=== PATIENT | female | born 1995 | race Hispanic/Latino ===

== ENCOUNTER 2017-08-10 07:43 | Emergency (ER) | payer SELFPAY ==
--- NOTE | 2017-08-10 10:11 | RAD ---
CHEST ONE VIEW: 08/10/2017 at 10:04 a.m. HISTORY: Cough. FINDINGS/IMPRESSION: Comparison is made with the exam of 01/18/2014. The heart size is normal. The lungs are expanded without focal areas of consolidation, pneumothorax , or pleural effusions. IMPRESSION: No radiographic evidence of acute cardiopulmonary process. POS: [facility]
== END 2017-08-10 11:01 | disposition home or self-care (01) ==
LOC: ERS 07:43
DX: J10.1 Influenza due to other identified influenza virus with other respiratory manifestations (principal); J45.909 Unspecified asthma, uncomplicated; D64.9 Anemia, unspecified; F17.210 Nicotine dependence, cigarettes, uncomplicated; F31.9 Bipolar disorder, unspecified
CPT/HCPCS: 71010; 87081; 87430

== ENCOUNTER 2019-01-14 18:06 | Emergency (ER) | payer SELFPAY ==
[2019-01-14] MEDS ORDERED: Meclizine HCl 25 MG TAB ONE (18:23)
[2019-01-14] MEDS ORDERED: Ondansetron ODT 4 MG TAB ONE (18:23)
[2019-01-14 18:55] LABS: #Basophils 0.1 thou/uL (0.0-0.2); #Eosinphils 0.4 thou/uL (0.0-0.7); #Lymphocytes 3.7 thou/uL (1.20-3.40); #Monocytes 0.6 thou/uL (0.11-0.59); #Neutrophils 4.3 thou/uL (1.40-6.50); %Basophils 0.9 % (0.0-1.0); %Eosinophils 4.6 % (0.0-10.0); %Lymphocytes 40.9 % (21.0-51.0); %Monocytes 6.2 % (0.0-10.0); %Neutrophils 47.5 % (42.0-75.0); Hemoglobin 14.9 g/dL (12.0-16.0); Mean Corpuscular HGB CONC 34.1 g/dL (32.0-36.0); Mean Corpuscular Hemoglobin 27.8 pg (27.0-31.0); Mean Corpuscular Volume 81.4 fL (78.0-98.0); Mean Platelet Volume 9.1 fL (7.4-10.4); Platelet Count 251 thou/uL (130-400); RBC Distribution Width 12.6 % (11.5-14.5); Red Blood Cell (RBC) Count 5.37 mill/uL (4.20-5.40); White Blood Cell (WBC) Count 9.1 thou/uL (4.8-10.8)
[2019-01-14 19:19] LABS: ALT (SGPT) 23 U/L (8-55); AST (SGOT) 20 U/L (5-34); Albumin 3.8 g/dL (3.5-5.0); Alkaline Phosphatase 69 U/L (40-150); Anion Gap 14 mmol/L (10-20); BUN (Urea Nitrogen) Less than 4 mg/dL (7.0-18.7); Bilirubin, Total 0.5 mg/dL (0.2-1.2); Calc. Creatinine Clearance 0 mL/min (70-130); Carbon Dioxide 20 mmol/L (22-29); Chloride 110 mmol/L (98-107); Estimated GFR-MDRD Greater than 90; Globulin 2.8 g/dL (2.4-3.5); Glucose 107 mg/dL (70-105); Potassium 3.7 mmol/L (3.5-5.1); Protein, Total 6.6 g/dL (6.0-8.3); Sodium 140 mmol/L (136-145)
[2019-01-14 19:25] LABS: BHCG - Serum Negative (NEGATIVE); Pregs Control Background? CLEAR/WHITE (CLR/WHITE); Pregs Control Bar Appear? YES (CONTROL BAR)
== END 2019-01-14 19:51 | disposition home or self-care (01) ==
LOC: ERS 18:06
DX: R11.2 Nausea with vomiting, unspecified (principal); R42 Dizziness and giddiness; F31.9 Bipolar disorder, unspecified; D64.9 Anemia, unspecified; J45.909 Unspecified asthma, uncomplicated; G43.909 Migraine, unspecified, not intractable, without status migrainosus; F17.210 Nicotine dependence, cigarettes, uncomplicated; Z87.442 Personal history of urinary calculi; Z79.899 Other long term (current) drug therapy
CPT/HCPCS: 80053; 84703; 85025; 93005; 96360; J2175; J8499; Q0162

== ENCOUNTER 2019-04-01 23:43 | Emergency (ER) | payer SELFPAY ==
[2019-04-02 00:34] LABS: Hemoglobin 15.5 g/dL (12.0-16.0); Mean Corpuscular HGB CONC 33.8 g/dL (32.0-36.0); Mean Corpuscular Hemoglobin 27.7 pg (27.0-31.0); Mean Platelet Volume 8.5 fL (7.4-10.4); Platelet Count 245 thou/uL (130-400); RBC Distribution Width 12.4 % (11.5-14.5); Red Blood Cell (RBC) Count 5.59 mill/uL (4.20-5.40)
[2019-04-02 00:56] LABS: Band 1 % (5-11); Eosinophils 2 % (0-10); Lymphocytes 60 % (21-51); MDiff Complete? YES; Monocytes 4 % (0-10); Neutrophil 31 % (42-75); Reactive Lymphocytes 1 % (0-10)
[2019-04-02 00:57] LABS: ALT (SGPT) 16 U/L (8-55); AST (SGOT) 17 U/L (5-34); Albumin 4.1 g/dL (3.5-5.0); Alkaline Phosphatase 69 U/L (40-150); Anion Gap 16 mmol/L (10-20); BUN (Urea Nitrogen) 7 mg/dL (7.0-18.7); Bilirubin, Total 0.5 mg/dL (0.2-1.2); Calc. Creatinine Clearance 0 mL/min (70-130); Calcium 9.3 mg/dL (7.8-10.44); Carbon Dioxide 19 mmol/L (22-29); Chloride 104 mmol/L (98-107); Estimated GFR-MDRD Greater than 90; Glucose 89 mg/dL (70-105); Lipase 10 U/L (8-78); Potassium 3.6 mmol/L (3.5-5.1); Protein, Total 7.1 g/dL (6.0-8.3); Sodium 135 mmol/L (136-145)
[2019-04-02] MEDS ORDERED: Ondansetron PF 4 MG/2 ML Vial ONE (02:04)
[2019-04-02] MEDS ORDERED: Morphine 4 MG/ML VIAL ONE (02:04)
[2019-04-02 02:31] LABS: Bilirubin Negative (Negative); Blood, Urine Negative (Negative); Clarity Clear (Clear); Glucose, Urine (Dipstick) Normal (Negative); Leukocyte Negative Leu/uL (Negative); Nitrite Negative (Negative); Protein, Urine (Dipstick) Negative (Neg-Trace); Urobilinogen Normal mg/dL (Less than 2)
[2019-04-02 02:39] LABS: Pregnancy Test - Urine (BHCG) Negative (Negative); Pregu Control Background? CLEAR/WHITE (CLR/WHITE); Pregu Control Bar Appear? YES (CONTROL BAR)
[2019-04-02 02:40] LABS: Specific Gravity 1.006 (1.002-1.036)
== END 2019-04-02 03:44 | disposition home or self-care (01) ==
LOC: ERS 23:43
DX: R11.2 Nausea with vomiting, unspecified (principal); R19.7 Diarrhea, unspecified; D64.9 Anemia, unspecified; G43.909 Migraine, unspecified, not intractable, without status migrainosus; J45.909 Unspecified asthma, uncomplicated; F31.9 Bipolar disorder, unspecified; F17.210 Nicotine dependence, cigarettes, uncomplicated; Z79.899 Other long term (current) drug therapy
CPT/HCPCS: 36415; 80053; 81003; 81025; 83690; 85025; 96361; 96374; 96375; J2270; J2405

== ENCOUNTER 2019-06-02 21:22 | Emergency (ER) | payer SELFPAY ==
[2019-06-02] MEDS ORDERED: Lorazepam 2 MG/ML VIAL ONE (21:48)
--- NOTE | 2019-06-03 07:13 | RAD ---
3 VIEWS LEFT HAND: Date: 06/02/19 HISTORY: Hand pain. COMPARISON: None. FINDINGS: There is no evidence of a fracture, dislocation, or other osseous abnormality involving the left hand . IMPRESSION: No acute osseous abnormality. POS: OFF
--- NOTE | 2019-06-03 07:14 | RAD ---
PORTABLE AP CHEST: Date: 06/02/19 HISTORY: Chest pain. COMPARISON: 08/10/17. FINDINGS: Cardiac silhouette and pulmonary vasculature are within normal limits. The lungs remain clear. There has been no interval change when compared to the prior exam. IMPRESSION: No acute cardiopulmonary process. POS: OFF
== END 2019-06-02 22:46 | disposition home or self-care (01) ==
LOC: ERS 21:22
DX: F41.9 Anxiety disorder, unspecified (principal); G43.909 Migraine, unspecified, not intractable, without status migrainosus; F17.210 Nicotine dependence, cigarettes, uncomplicated; Z79.899 Other long term (current) drug therapy
CPT/HCPCS: 71045; 93005; 96374; J2060

== ENCOUNTER 2019-06-11 15:18 | Outpatient (CLI) | payer OTHER ==
--- NOTE | 2019-06-11 16:04 | ULT ---
RENAL SONOGRAM: 06/11/19 HISTORY: Hypertension. FINDINGS: Right kidney is 10.5 cm length and left is 10.7 cm. Each has a normal appearance without evidence of mass, stone or hydronephrosis. Urinary bladder is unremarkable. IMPRESSION: Normal renal sonogram. POS: [facility]
== END 2019-06-11 15:19 | disposition home or self-care (01) ==
LOC: BICULT 15:18
PROVIDERS: ATTEND Nurse Practitioner Family
DX: I10 Essential (primary) hypertension (principal); R53.83 Other fatigue
CPT/HCPCS: 76770

== ENCOUNTER 2019-07-12 20:45 | Emergency (ER) | payer SELFPAY ==
[2019-07-12] MEDS ORDERED: Metoclopramide HCl 10 MG/2 ML VIAL ONE (21:32)
[2019-07-12] MEDS ORDERED: Acetaminophen 500 MG TAB ONE (21:32)
[2019-07-12] MEDS ORDERED: diphenhydrAMINE 50 MG/ML VIAL ONE (21:32)
--- NOTE | 2019-07-12 22:49 | CT ---
CT BRAIN NONCONTRAST: DATE: 07/12/2019 HISTORY: 23-year-old female with headache FINDINGS: There is no evidence of acute intra-axial or extra-axial hemorrhage. There is no midline shift or any other mass effect. There is no extra-axial fluid collection. There is no evidence of obstructive hydrocephalus. Calvarium is intact. IMPRESSION: No acute intracranial findings.
== END 2019-07-12 22:58 | disposition home or self-care (01) ==
LOC: ERS 20:45
DX: R51 Headache (principal); J45.909 Unspecified asthma, uncomplicated; D64.9 Anemia, unspecified; F41.9 Anxiety disorder, unspecified; F31.9 Bipolar disorder, unspecified; F43.10 Post-traumatic stress disorder, unspecified; F17.210 Nicotine dependence, cigarettes, uncomplicated
CPT/HCPCS: 70450; 96365; 96375; J1200; J2765

== ENCOUNTER 2019-08-13 13:13 | Outpatient (CLI) | payer OTHER ==
--- NOTE | 2019-08-13 13:27 | RAD ---
XR Chest Pa Lat STANDARD HISTORY: Wheezing COMPARISON: 06/02/2019 FINDINGS: The heart size is normal. The lungs are well expanded without focal areas of consolidation, pneumothorax or pleural effusions. IMPRESSION: No radiographic evidence of acute cardiopulmonary process.
== END 2019-08-13 13:14 | disposition home or self-care (01) ==
LOC: RAD-FRANK 13:13
PROVIDERS: ATTEND Internal Medicine
DX: R06.2 Wheezing (principal)
CPT/HCPCS: 71046

== ENCOUNTER 2019-08-18 12:15 | Emergency (ER) | payer SELFPAY ==
[2019-08-18] MEDS ORDERED: Metoclopramide HCl 10 MG/2 ML VIAL ONE (14:03)
[2019-08-18] MEDS ORDERED: diphenhydrAMINE 50 MG/ML VIAL ONE (14:03)
[2019-08-18 14:10] LABS: Pregnancy Test - Urine (BHCG) Negative (Negative); Pregu Control Background? CLEAR/WHITE (CLR/WHITE); Pregu Control Bar Appear? YES (CONTROL BAR); Specific Gravity 1.014 (1.002-1.036)
--- NOTE | 2019-08-18 14:19 | RAD ---
EXAM: Portable chest PROVIDED CLINICAL HISTORY: Cough COMPARISON: 06/02/2019 FINDINGS: Cardiac and mediastinal silhouette is within normal limits. No focal consolidation, pleural fluid or pneumothorax evident. IMPRESSION: No evidence for an acute cardiopulmonary process.
== END 2019-08-18 16:30 | disposition home or self-care (01) ==
LOC: ERS 12:15
DX: J18.9 Pneumonia, unspecified organism (principal); R51 Headache; J45.909 Unspecified asthma, uncomplicated; D64.9 Anemia, unspecified; F31.9 Bipolar disorder, unspecified; F43.10 Post-traumatic stress disorder, unspecified; F41.9 Anxiety disorder, unspecified; F17.210 Nicotine dependence, cigarettes, uncomplicated
CPT/HCPCS: 71045; 81025; 94640; 96365; 96375; J1200; J2765

== ENCOUNTER 2019-11-16 00:32 | Emergency (ER) | payer SELFPAY ==
--- NOTE | 2019-11-16 07:53 | RAD ---
Exam: XR Hand Lt 3 View STANDARD HISTORY: Left hand pain after punching a wall and car window. COMPARISON: 06/02/2019 FINDINGS: No radiopaque foreign body is seen. No acute fracture, dislocation, or other acute osseous abnormality is identified. No interval change from prior study. IMPRESSION: No acute osseous abnormality is identified.
== END 2019-11-16 01:00 | disposition home or self-care (01) ==
LOC: ERS 00:32
DX: S60.222A Contusion of left hand, initial encounter (principal); D64.9 Anemia, unspecified; J45.909 Unspecified asthma, uncomplicated; F31.9 Bipolar disorder, unspecified; F43.10 Post-traumatic stress disorder, unspecified; F41.9 Anxiety disorder, unspecified; F17.210 Nicotine dependence, cigarettes, uncomplicated; W22.01XA Walked into wall, initial encounter

== ENCOUNTER 2020-03-31 09:37 | Observation (INO) | payer OTHER, SELFPAY ==
[~2020-03-31 09:37] MED LIST: Iopamidol 370 76% 100 ML VIAL ONE
[2020-03-31 10:12] LABS: #Basophils 0.1 thou/uL (0.0-0.2); #Eosinphils 0.8 thou/uL (0.0-0.7); #Lymphocytes 3.7 thou/uL (1.20-3.40); #Monocytes 0.6 thou/uL (0.11-0.59); %Basophils 1.3 % (0.0-1.0); %Eosinophils 6.7 % (0.0-10.0); %Lymphocytes 32.9 % (21.0-51.0); %Monocytes 5.4 % (0.0-10.0); %Neutrophils 53.6 % (42.0-75.0); Hemoglobin 16.9 g/dL (12.0-16.0); Mean Corpuscular HGB CONC 33.2 g/dL (32.0-36.0); Mean Corpuscular Hemoglobin 27.8 pg (27.0-31.0); Mean Corpuscular Volume 83.8 fL (78.0-98.0); Mean Platelet Volume 8.6 fL (7.4-10.4); Platelet Count 290 thou/uL (130-400); Red Blood Cell (RBC) Count 6.07 mill/uL (4.20-5.40); White Blood Cell (WBC) Count 11.2 thou/uL (4.8-10.8)
[2020-03-31] MEDS ORDERED: diphenhydrAMINE 50 MG/ML VIAL ONE (10:15)
[2020-03-31] MEDS ORDERED: Metoclopramide HCl 10 MG/2 ML VIAL ONE (10:15)
[2020-03-31] MEDS ORDERED: Dexamethasone 10 MG/ML VIAL ONE (10:15)
--- NOTE | 2020-03-31 10:24 | RAD ---
CHEST 1 VIEW PORTABLE: Date: 03/31/2020 HISTORY: Headache, nausea, lightheadedness. COMPARISON: 08/18/2019. FINDINGS: Heart size is normal. The lungs are clear. No confluent pneumonia, overt edema, or pleural effusion. IMPRESSION: No acute intrathoracic disease. Stable from 08/18/2019. POS: OFF
--- NOTE | 2020-03-31 10:25 | CT ---
CT BRAIN NONCONTRAST: DATE: 03/31/2020 HISTORY: 24-year-old female with acute stroke symptoms: Sudden onset dysarthria, left body numbness, and ataxi a. Dr. Mary verbally gave this level 1 stroke alert protocol report to Dr. Caldwell at 10:21 AM 03/31/2020. FINDINGS: There is no evidence of acute intra-axial or extra-axial hemorrhage. There is no midline shift or any other mass effect. There is no extra-axial fluid collection. There is no evidence of obstructive hydrocephalus. Calvarium is intact. IMPRESSION: No acute intracranial findings.
[2020-03-31 10:37] LABS: ALT (SGPT) 28 U/L (8-55); AST (SGOT) 20 U/L (5-34); Albumin 4.6 g/dL (3.5-5.0); Alkaline Phosphatase 86 U/L (40-110); Anion Gap 16 mmol/L (10-20); BUN (Urea Nitrogen) 7 mg/dL (7.0-18.7); Bilirubin, Total 0.4 mg/dL (0.2-1.2); Calc. Creatinine Clearance 0 mL/min (70-130); Calcium 9.7 mg/dL (7.8-10.44); Carbon Dioxide 21 mmol/L (22-29); Chloride 103 mmol/L (98-107); Estimated GFR-MDRD Greater than 90; Globulin 3.1 g/dL (2.4-3.5); Glucose 122 mg/dL (70-105); Potassium 4.1 mmol/L (3.5-5.1); Protein, Total 7.7 g/dL (6.0-8.3); Sodium 136 mmol/L (136-145)
--- NOTE | 2020-03-31 10:46 | CT ---
CT ANGIOGRAM NECK WITH CONTRAST: DATE: 03/31/2020 HISTORY: 24-year-old female with acute stroke symptoms: Sudden onset left sided weakness, ataxia, dysarthria, dizziness, and altered mental status. This stroke alert protocol report was verbally given by Dr. Mary to Dr. Caldwell of the ER at 10:42 AM 03/31/2020 TECHNIQUE: After IV contrast injection, arterial bolus chasing technique scan performed from vikash to vertex of head. Coronal and sagittal 3-D MIP reconstructions. FINDINGS: Carotid siphons, M1 segments of bilateral MCAs, A1 and A2 segments of bilateral ACAs, left P-comm, P1 and P2 segments of bilateral active directory systems administrator, basilar, bilateral PICA s, bilateral AICAs, bilateral superior cerebellars, cervical and intracranial bilateral vertebral sac, cervical bilateral internal carotids, bilateral common carotids, proximal right subclavian, left subclavian, and brachiocephalic, arteries, appear normal, with no evidence of short segment focal acquired stenosis, dissection, aneur ysm, occlusion, or calcified atheromatous plaque. IMPRESSION: Negative
[2020-03-31 10:51] LABS: INR-International Normal Ratio 0.9; PTT 34.9 sec (22.9-36.1); Prothrombin Time 11.9 sec (12.0-14.7)
[2020-03-31] MEDS ORDERED: Lorazepam 2 MG/ML VIAL ONE (11:10)
[2020-03-31] MEDS ORDERED: Ketorolac Tromethamine 30 MG/ML VIAL ONE (13:09)
[2020-03-31] MEDS ORDERED: Ondansetron PF 4 MG/2 ML Vial IVP PRN (13:22)
[2020-03-31] MEDS ORDERED: Senokot S 8.6-50 MG TAB PO PRN (13:22)
[2020-03-31] MEDS ORDERED: Acetaminophen 325 MG TAB PO PRN (13:22)
[2020-03-31] MEDS ORDERED: Fioricet 325/50/40 mg Tablet PO PRN (13:26)
[2020-03-31] MEDS ORDERED: Fioricet 325/50/40 mg Tablet PO SCH (13:30)
[2020-03-31 13:38] LABS: Troponin I 0.961 ng/mL (< 0.028)
[2020-03-31] MEDS ORDERED: Iopamidol-370 76% 500 ML 1 ML ONE ×2 (13:38→13:45)
[2020-03-31] MEDS ORDERED: Nicotine 14 MG PATCH TD SCH (14:00)
[2020-03-31] MEDS ORDERED: hydrALAZINE 20 MG/ML VIAL SLOW IVP PRN (14:22)
--- NOTE | 2020-03-31 14:32 | HP ---
PRIMARY CARE PHYSICIAN: [facility]. CHIEF COMPLAINT: Nausea, vomiting, headache, left-side paresthesia, chest discomfort. HISTORY OF PRESENT ILLNESS: This is a pleasant 24-year-old female with significant past medical histories of complex migraine headaches, depression/ anxiety disorder, bipolar disorder, childhood asthma, who presented to the ED with complaining of stated above. The patient apparently was at the preop area, she brought her family members in for some procedure, while waiting in the area, she developed sudden onset of frontal headache associated with left-sided numbness and paresthesia, nausea, vomiting, states that "she was about to pass out." She denies any visual disturbance. No fevers or chills. The patient reports that she did not eat anything when she came into the hospital today. Her symptoms also associated with chest discomfort. She denies any short of breath. No fever. No chills. No recent travel history. No history of COVID exposure. The patient reports that she stopped all her psychiatric medications about a year ago. Her last migraine attack was about a year ago as well. In the ED, initial workup including brain CT which was negative for acute intracranial abnormality. CTA of the head and neck was negative for large vessel disease. Chest x-ray did not show any acute process. Labs otherwise unremarkable. However her EKG initially was normal, however, she developed some chest discomfort. For that reason, the repeat EKG, which showed that she has V1 through V3, with ST depression, which is new changes from her initial EKG. Given her symptomatology, hospitalist was asked to admit the patient for further management and workup. At the time of my exam, the patient reports that her headache is much improved. ALLERGIES: NO KNOWN DRUG ALLERGIES. PAST MEDICAL HISTORY: 1. Bipolar disorder. 2. Depression/anxiety. 3. Childhood asthma. 4. Migraine disorder. PAST SURGICAL HISTORY: Left knee surgery. FAMILY HISTORY: Significant for father with history of Father with hx of heart disease. LABORATORY DATA: CBC; WBC 11.2, hemoglobin 16.9, hematocrit 50.8, platelet 290. Coagulation; PT 11.9, INR 0.9. Chemistry; sodium is 136, potassium 4.1, chloride is 103, carbon dioxide 21, anion gap 16, BUN 7, creatinine 0.69. AST, ALT within normal limits. Troponin is less than 0.01. IMAGING: Chest x-ray: No acute cardiopulmonary process. Brain CT: No acute intracranial abnormalities. CTA of head and neck: Negative for large vessel disease. EKG: As mentioned above. REVIEW OF SYSTEMS: Complete review of systems has been assessed and discussed with the patient. Negative and positive noted in the HPI. Otherwise, complete review of systems reviewed and negative. PHYSICAL EXAMINATION: GENERAL APPEARANCE: The patient is not in acute distress. HEENT: Normocephalic, atraumatic. YANCI. NECK: Supple. No lymphadenopathy. RESPIRATORY: Clear to auscultation bilaterally. CARDIAC: Regular rate and rhythm. S1, S2 noted. No murmur. ABDOMEN: Obese. Normal bowel sounds. No guarding or rebound. Nontender to palpation. EXTREMITIES: No cyanosis, no edema. NEUROLOGIC: Cranial nerves 2 through 12 are grossly intact. No focal weakness. PSYCHIATRIC: The patient is alert and oriented x3, normal affect. SKIN: Multiple tattoos noted. No rash. ASSESSMENT AND PLAN: This is a pleasant 24-year-old female with significant past histories of migraine headaches, bipolar disorder, anxiety/depression, who presented to the ED with multiple complaints including new onset of frontal headache associated with left upper extremity paresthesia, and nausea and vomiting. Initial workup in the ED was unremarkable except for EKG changes. 1. Migraine attack. 2. Abnormal EKG. 3. Chest discomfort. 4. Morbid obesity. 5. Histories of bipolar disorder. 6. Depression/anxiety disorder. 7. Hypertensive urgency - BP is now normalized The patient will be admitted to tele for observation. We will continue with serial enzymes, repeat EKG in a.m. We will obtain echo to assess her LV function. Also obtain treadmill stress test for further risk stratification. Check D-Dimer. Given regarding her headache, this is likely d/t complex migraine headache and/or due to elevated BP. We will continue with supportive care, p.r.n. Fioricet. CT head and neck was unremarkable. We will hold off on MRI at this point as her physical exam did not show any focal weakness or any other neurological signs or symptoms. IV fluid hydrations, supportive care. We will repeat labs in a.m. Monitor BP, consider start her on anti-hypertensive medication if elevate again; otherwise prn IV Hydralazine for now. CODE STATUS: The patient is full code per her request. DVT prophylaxis, SCD. GI prophylaxis, not indicated. Job ID: [id number] [facility]
[2020-03-31] MEDS ORDERED: Fentanyl 100 MCG/2 ML VIAL ONE (16:30)
[2020-03-31 16:42] LABS: Troponin I 2.288 ng/mL (< 0.028)
[2020-03-31 16:50] VITALS: BMI 37.8
[2020-03-31] MEDS ORDERED: Acetaminophen/Codeine 30-300mg Tablet PO PRN (16:51)
[2020-03-31] MEDS ORDERED: Sodium Chloride 0.9% 200 ML IV PRN (16:51)
[2020-03-31] MEDS ORDERED: Sodium Chloride 0.9% 500 ML IV SCH (17:00)
[2020-03-31 17:14] LABS: Amphetamine Detected (NotDetected); Benzodiazepine Screen Detected (NotDetected); Cocaine Metabolite Screen Not Detected (NotDetected); Medtox Reader # READER 1; Methamphetamine Detected (NotDetected); Opiate Screen Detected (NotDetected); Phencyclidine (PCP) Not Detected (NotDetected); THC/Cannabinoid Screen Not Detected (NotDetected)
[2020-03-31 17:15] LABS: Barbiturates Screen Not Detected (NotDetected); Medtox Control Line Valid? VALID (VALID); Methadone Not Detected (NotDetected); Oxycodone Screen Not Detected (NotDetected); Tricyclic Screen Not Detected (NotDetected)
[2020-03-31 17:55] LABS: Pregnancy Test - Urine (BHCG) Negative (Negative); Pregu Control Background? CLEAR/WHITE (CLR/WHITE); Pregu Control Bar Appear? YES (CONTROL BAR); Specific Gravity 1.027 (1.002-1.036)
--- NOTE | 2020-03-31 20:06 | CT ---
CT arteriogram chest and abdomen with IV contrast and 3-D imaging HISTORY: Chest and abdomen pain radiating to the back. FINDINGS: There is good contrast opacification of the aorta with normal branching of the great vessel s at the aortic arch. No filling defects evident within the pulmonary arteries. Visceral arteries are patent. No evidence of dissection or injury. Tiny nonspecific subpleural nodule is present within the right upper lobe. Hyperdense material within the gallbladder from recent catheterization procedure. IMPRESSION : No acute vascular abnormalities or other significant abnormalities are demonstrated.
[2020-03-31] MEDS: HYDROcodone/Acetaminophen 5/325 mg Tablet PO PRN (20:13)
[2020-04-01] MEDS: HYDROcodone/Acetaminophen 5/325 mg Tablet PO PRN ×2 (04:04→09:35)
[2020-04-01 04:45] LABS: #Basophils 0.2 thou/uL (0.0-0.2); #Monocytes 0.7 thou/uL (0.11-0.59); %Basophils 1.1 % (0.0-1.0); %Eosinophils 0.1 % (0.0-10.0); %Lymphocytes 12.1 % (21.0-51.0); %Monocytes 4.3 % (0.0-10.0); %Neutrophils 82.5 % (42.0-75.0); Hemoglobin 16.4 g/dL (12.0-16.0); Mean Corpuscular HGB CONC 33.4 g/dL (32.0-36.0); Mean Corpuscular Hemoglobin 27.8 pg (27.0-31.0); Mean Corpuscular Volume 83.3 fL (78.0-98.0); Mean Platelet Volume 8.8 fL (7.4-10.4); Platelet Count 300 thou/uL (130-400); White Blood Cell (WBC) Count 16.9 thou/uL (4.8-10.8)
[2020-04-01 05:07] LABS: Anion Gap 17 mmol/L (10-20); BUN (Urea Nitrogen) 6 mg/dL (7.0-18.7); Calc. Creatinine Clearance 205 mL/min (70-130); Calcium 9.5 mg/dL (7.8-10.44); Carbon Dioxide 18 mmol/L (22-29); Chloride 105 mmol/L (98-107); Estimated GFR-MDRD Greater than 90; Glucose 127 mg/dL (70-105); Magnesium 1.9 mg/dL (1.6-2.6); Potassium 3.9 mmol/L (3.5-5.1); Sodium 136 mmol/L (136-145)
--- NOTE | 2020-04-01 07:20 | CON ---
DATE OF CONSULTATION: 03/31/2020 REASON FOR CONSULTATION: Chest pain. HISTORY OF PRESENT ILLNESS: Ms. Jonathan Lynch is a pleasant 24-year-old female, who comes to the hospital to be with her for surgery. Her received I think a bladder lift earlier today. While she was in the waiting area waiting for her to be done with her surgery, she developed sudden onset of headache symptoms that were concerning for possible TIA versus stroke, eventually these resolved and started having a lot more chest pain. She states that she was very close to having a syncopal spell. She was sent to the ER where a CT of the brain was negative for any bleeding, a CT angio of the brain was also negative, her chest x-ray was unremarkable. During her initial evaluation, troponins were drawn and the initial one was undetectable and second one was 0.9, so Cardiology was consulted for this. On my evaluation, Ms. Castillo is having ongoing chest pain. She states that her pain is about 6/10 in the midsternal area, feels more like a pressure. It is better than what it was when she originally came in. Chest x-ray was unremarkable. No widened mediastinum. PAST MEDICAL HISTORY: 1. Bipolar disorder. 2. Anxiety and depression. 3. Childhood asthma. 4. Migraine disorder. PAST SURGICAL HISTORY: Left knee surgery. FAMILY HISTORY: Father with early coronary artery disease, otherwise unremarkable. OUTPATIENT MEDICATIONS: None currently. ALLERGIES: NO KNOWN DRUG ALLERGIES. REVIEW OF SYSTEMS: A 12-point review of systems was done and was found to be negative other than stated in the history of present illness. PHYSICAL EXAMINATION: VITAL SIGNS: Temperature 97.2; pulse 88; respiratory rate 16; saturating 98% on room air; blood pressure on arrival of 215/126, however, the most recent one was 127/83, and she continues to have chest pain. GENERAL: Awake, alert, and oriented x3, in no distress. HEENT: Normocephalic and atraumatic. NECK: Supple. LUNGS: Clear. CARDIOVASCULAR: S1 and S2. No S3 or S4. No murmurs. No rubs. ABDOMEN: Soft. Positive bowel sounds. EXTREMITIES: No edema. SKIN: Warm and dry. LABORATORY DATA: Laboratory work was reviewed. CBC was unremarkable except for hemoglobin of 16 and white count of 11. Coags were normal. D-dimer was undetectable. Chemistries were unremarkable except for a glucose of 117. Troponin initially was less than assay limit, second one was 0.96. IMAGING STUDIES: EKG was reviewed. Chest x-ray was reviewed. CT of the brain and CT of the [place] with contrast were reviewed. ASSESSMENT AND PLAN: 1. [id number] myocardial infarction. 2. Hypertensive emergency. PLAN: 1. Currently, my only concern would be coronary artery dissection that is ongoing and is causing her to have ongoing chest pain. Her blood pressure is completely back to normal. She continues to have chest pain and her troponin is mildly elevated. We could explain her mildly elevated troponin with hypertension; however, her symptoms remain despite normalized blood pressure. At this point, I think it is prudent to be more aggressive to make sure there is no coronary artery dissection that may need to be either stented or bypassed. I have offered Ms. Castillo heart catheterization. We spoke at length about the risks and benefits of the procedure. Risks included, but not limited to stroke, [place], , bleeding, need for blood transfusion, limb loss, organ loss. The patient understands and verbalized understanding of this and agrees to proceed. We will do this in a semi-emergent fashion at this time. 2. If heart catheterization is unremarkable, we may need to do a CT of the chest with contrast to make sure there is no other issues going on causing her chest pain. Thank you for letting us participate in the care of your patient. We will follow. Job ID: [id number]
--- NOTE | 2020-04-01 10:02 | CT ---
CT ANGIOGRAM HEAD AND NECK WITH CONTRAST: DATE: 03/31/2020 HISTORY: 24-year-old female with acute stroke symptoms: Sudden onset left sided weakness, ataxia, dysarthria, dizziness, and altered mental status. This stroke alert protocol report was verbally given by Dr. Mary to Dr. Caldwell of the ER at 10:42 AM 03/31/2020 TECHNIQUE: After IV contrast injection, arterial bolus chasing technique scan performed from vikash to vertex of head. Coronal and sagittal 3-D MIP reconstructions. FINDINGS: Carotid siphons, M1 segments of bilateral MCAs, A1 and A2 segments of bilateral ACAs, left P-comm, P1 and P2 segments of bilateral strategic communications manager, basilar, bilateral PICA s, bilateral AICAs, bilateral superior cerebellars, cervical and intracranial bilateral vertebral sac, cervical bilateral internal carotids, bilateral common carotids, proximal right subclavian, left subclavian, and brachiocephalic, arteries, appear normal, with no evidence of short segment focal acquired stenosis, dissection, aneur ysm, occlusion, or calcified atheromatous plaque. IMPRESSION: Negative Transcribed Date/Time: 04/01/2020 10:02 AM
[2020-04-01 11:13] VITALS: TEMP 98.4
[2020-04-01 11:53] VITALS: BP 131/87
--- NOTE | 2020-04-01 13:17 | PDOC.CPN ---
- Subjective Date: 04/01/20 Time: 13:16 Interval history: No new issues. No more chest pain. - Review of Systems General: denies: fever/chills, weight/appetite/sleep changes, night sweats, fatigue Respiratory: denies: cough, congestion, shortness of breath, exercise intolerance Cardiovascular: denies: chest pain, palpitation, edema, paroxysmal nocturnal dyspnea, orthopnea Gastrointestinal: denies: nausea, vomiting, diarrhea, constipation, abd pain, GI bleeding Musculoskeletal: denies: pain, tenderness, stiffness, swelling, arthritis/ arthralgias Neurological: denies: numbness, syncope, seizure, weakness - Objective Allergies/Adverse Reactions: Allergies Allergy/AdvReac Type Severity Reaction Status Date / Time No Known Allergies Allergy Verified 07/14/13 16:49 Visit Medications: Current Medications Acetaminophen (Tylenol) 650 mg PO Q4H PRN PRN Reason: Headache/Fever/Mild Pain (1-3) Last Admin: 03/31/20 19:17 Dose: 650 mg Acetaminophen/Butalbital/Caffeine (Fioricet) 1 tab PO Q4H PRN PRN Reason: Headache Stop: 04/05/20 13:27 Acetaminophen/Codeine Phosphate (Tylenol #3) 1 tab PO Q4H PRN PRN Reason: Mild Pain (1-3) Hydrocodone Bitart/Acetaminophen ([place] 5/325) 1 tab PO Q4H PRN PRN Reason: Moderate Pain (4-6) Last Admin: 04/01/20 09:35 Dose: 1 tab Hydralazine HCl (Apresoline) 10 mg SLOW IVP Q4H PRN PRN Reason: SBP>160 or DBP>90 Sodium Chloride (Normal Saline 0.9%) 200 mls @ 0 mls/hr IV ONE PRN PRN Reason: SBP < 90 Stop: 04/01/20 16:52 Nicotine (Nicoderm Patch) 14 mg TD Q24HR AUDRA Last Admin: 03/31/20 15:30 Dose: 14 mg Ondansetron HCl (Zofran) 4 mg IVP Q6H PRN PRN Reason: Nausea/Vomiting Pneumococcal Polyvalent Vaccine (Pneumovax 23) 0.5 ml IM .ONCE ONE Stop: 04/01/20 17:46 Senna/Docusate Sodium (Senokot S) 2 tab PO BIDPRN PRN PRN Reason: Constipation Last Admin: 04/01/20 09:36 Dose: 2 tab Vital Signs & Weight: Vital Signs Temp Pulse Pulse Pulse Resp BP BP 04/01/20 11:12 98.4 F 115 H 16 04/01/20 10:37 125 H 128 H 131/87 97/67 04/01/20 07:47 98.2 F 99 18 04/01/20 04:46 99.3 F 105 H 23 H BP BP Pulse Ox Pulse Ox Pulse Ox 04/01/20 11:12 122/73 99 04/01/20 10:37 98 98 04/01/20 07:47 120/85 99 04/01/20 04:46 125/88 98 Weight 209 lb 7.026 oz - Physical Exam General: alert & oriented x3 HEENT: mucus membranes moist Neck: supple neck Cardiac: regular rate and rhythm Lungs: clear to auscultation Neuro: grossly intact Abdomen: active bowel sounds Extremities: no edema Skin: clear Musculoskeletal: no pain - Labs Result Diagrams: 04/01/20 04:00 04/01/20 04:00 Troponin/CKMB Troponin I 2.288 ng/mL (< 0.028) H* 03/31/20 15:53 - Telemetry Sinus rhythms and dysrhythmias: sinus tachycardia - Assessment/Plan Assessment/Plan: 1. NSTEMI 2. Methamphetamine in UDS 3. Normal coronaries. PLAN: - Likely all her symptoms related to Methamphetamine use. - May discharge home. CV stable. - Will sign off. Please call with any questions.
[2020-04-01 13:53] LABS: SARS-CoV-2 MS2 Positive; SARS-CoV-2 N Gene Negative; SARS-CoV-2 S Gene Negative; SARS-CoV-2 by NAA Not Detected (NotDetected); SARS-CoV-2 orf1ab Negative
--- NOTE | 2020-04-01 16:46 | EKG ---
Test Reason : Blood Pressure : / mmHG Vent. Rate : 086 BPM Atrial Rate : 086 BPM P-R Int : 122 ms QRS Dur : 090 ms QT Int : 414 ms P-R-T Axes : 032 044 033 degrees QTc Int : 495 ms Normal sinus rhythm Prolonged QT Abnormal ECG When compared with ECG of 31-MAR-2020 10:46, (Unconfirmed) ST no longer depressed in Anterior leads Nonspecific T wave abnormality no longer evident in Anterior leads QT has lengthened Confirmed by DR. Jennifer RVIERA ([id number]) on 04/01/2020 4:45:48 PM Referred By: ODILIA Confirmed By:DR. Jennifer RIVERA
--- NOTE | 2020-04-02 16:46 | DIS ---
DATE OF ADMISSION: 03/31/2020 DATE OF DISCHARGE: 04/01/2020 DISCHARGE DIAGNOSES: 1. Hrd-[id number] myocardial infarction. 2. Migraine headache. 3. Abnormal EKG. 4. Chest discomfort. 5. Morbid obesity. 6. History of bipolar disorders. 7. Depression/anxiety disorders. 8. Hypertensive urgency. 9. Positive drug urine screen for opiate, amphetamine, methamphetamine, and benzodiazepine. CONSULTATIONS: Cardiology, Dr. Tadeo. PROCEDURE: Left heart catheterization, normal coronary artery. IMAGING STUDY: CT angio of the head and neck was negative. Brain CT had no acute intracranial findings. CTA dissection protocol, no vasculature abnormalities or other significant abnormalities demonstrated. HISTORY OF PRESENT ILLNESS AND BRIEF HOSPITAL COURSE: The patient is a pleasant 24-year-old female, who has significant past medical history of complex migraine headache, depression/anxiety disorder, bipolar disorder, and childhood asthma, who presented to the ED with complaining of acute onset of nausea, vomiting, headache associated with left-sided paresthesia, chest discomfort. Initial workup in the ED including CTA of the head and neck was negative for any small vessel disease. CT of the head was negative for acute intracranial abnormality. CTA dissection protocol was negative as well. Her blood pressure was noted elevated upon arrival; however, she responded well. Her initial EKG was unremarkable. However, the patient was complaining of some chest discomfort. For that reason , the ED staff repeated an EKG, which showed that she had V1 through V3 ST depression. Her initial enzymes were negative. Hospitalist was asked to admit the patient for further observation and management. The patient was admitted to tele. Serial enzymes were ordered. Her repeat enzymes came back, which went up to 0.961, then 2.288. Given the above finding, Cardiology was consulted. The patient was seen by Dr. Tadeo, the patient underwent left heart catheterization, which was negative for coronary artery disease. Her urine drug screen later came back positive for opiate, amphetamine, methamphetamine, and benzodiazepine. I have discussed the findings above with the patient. However, the patient adamantly refused and she denied any drug abuse, she stated this could be due to the false/positive from all the medication that she has been taking, including Mucinex, Seroquel, and other medications. The patient stated she had been clean for at least a year or two. At this point, I have discussed the case with Cardiology. No further workup is needed or necessitates inpatient stay. For that reason, we are going to discharge her home. Her blood pressure is well controlled. However, her heart rate is slightly elevated. I have counseled her to avoid those medications. She will be sent home with a prescription for Toprol-XL 25 mg p.o. daily for blood pressure and rate control. The patient was advised to follow up with her PCP in 1 to 2 weeks. ACTIVITY: As tolerated. DIET: Cardiac diet. DISCHARGE CONDITION: Stable. PHYSICAL EXAMINATION: GENERAL APPEARANCE: The patient is alert and oriented x3. Not in acute distress. HEENT: Normocephalic and atraumatic. Mucous membranes moist. NECK: Supple. No lymphadenopathy. No JVD. HEART: Regular rate and rhythm. S1 and S2 noted. No murmur. PULMONOLOGY: Clear to auscultation bilaterally. ABDOMEN: Obese. Normal bowel sounds. No guarding or tenderness. EXTREMITIES: No cyanosis or edema. SKIN: Multiple tattoos noted. NEUROLOGY: Cranial nerves 2 through 12 grossly intact. No focal weakness. PSYCHIATRIC: The patient is alert and oriented x3. Normal affect. DISCHARGE INSTRUCTIONS: 1. The patient was advised to take her medication as prescribed. 2. The patient was counseled regarding avoiding recreational drug use. 3. The patient was advised to follow with her PCP in 1 to 2 weeks now. DISCHARGE MEDICATION: Toprol-XL 25 mg p.o. one tablet daily. DISCHARGE TIME SPENT: 35 minutes. Job ID: [id number] [facility]
--- NOTE | 2020-04-09 15:23 | EKG ---
Test Reason : Blood Pressure : / mmHG Vent. Rate : 073 BPM Atrial Rate : 073 BPM P-R Int : 130 ms QRS Dur : 080 ms QT Int : 378 ms P-R-T Axes : 041 045 020 degrees QTc Int : 416 ms Normal sinus rhythm Nonspecific ST abnormality Abnormal ECG Confirmed by CABRERA MCKEON, CARTER ([id number]), make up editor DUKE LEUNG ([id number]) on 04/09/2020 3:23:34 PM Referred By: Confirmed By:CARTER REES MD
--- NOTE | 2020-04-09 15:24 | EKG ---
Test Reason : Blood Pressure : / mmHG Vent. Rate : 089 BPM Atrial Rate : 089 BPM P-R Int : 140 ms QRS Dur : 090 ms QT Int : 358 ms P-R-T Axes : 039 036 012 degrees QTc Int : 435 ms Normal sinus rhythm Nonspecific ST abnormality Abnormal ECG St depression V3-V5 lateral ischemia Confirmed by CABRERA MCKEON, CARTER ([id number]), video editor DUKE LEUNG ([id number]) on 04/09/2020 3:24:13 PM Referred By: Confirmed By:CARTER REES MD
== END 2020-04-01 13:15 | disposition home or self-care (01) ==
LOC: ERS 09:37 → 2NO 15:14
PROVIDERS: ADMIT Family Medicine; ATTEND Family Medicine
PROC: 4A023N7 Measurement of Cardiac Sampling and Pressure, Left Heart, Percutaneous Approach (ICD-10-PCS; principal; 2020-04-01)
PROC: B2111ZZ Fluoroscopy of Multiple Coronary Arteries using Low Osmolar Contrast (ICD-10-PCS; 2020-04-01)
DX: I21.4 Non-ST elevation (NSTEMI) myocardial infarction (principal); I16.0 Hypertensive urgency; G43.909 Migraine, unspecified, not intractable, without status migrainosus; F31.9 Bipolar disorder, unspecified; F41.9 Anxiety disorder, unspecified; F19.90 Other psychoactive substance use, unspecified, uncomplicated; F43.10 Post-traumatic stress disorder, unspecified; F17.210 Nicotine dependence, cigarettes, uncomplicated; J45.909 Unspecified asthma, uncomplicated; Z20.828 Contact with and (suspected) exposure to other viral communicable diseases; Z82.49 Family history of ischemic heart disease and other diseases of the circulatory system
CPT/HCPCS: 36415; 36416; 70450; 70496; 70498; 71045; 71275; 72191; 74175; 80048; 80053; 80306; 81025; 83735; 84484; 85025; 85379; 85610; 85652; 85730; 86140; 87635; 93005; 93010; 93306; 93458; 93567; 93798; 94760; 96365; 96366; 96375; 99152; 99153; G0378; J1100; J1200; J1644; J1885; J2060; J2765; J3010; Q9967; U0003

== ENCOUNTER 2020-10-10 22:30 | Emergency (ER) | payer SELFPAY ==
--- NOTE | 2020-10-10 22:46 | RAD ---
XR Chest 1 View Portable HISTORY: Right-sided chest pain COMPARISON: 03/31/2020 FINDINGS: The heart size is normal. The lungs are well expanded without focal areas of consolidation, pneumothorax or pleural effusions. IMPRESSION: No radiographic evidence of acute cardiopulmonary process.
[2020-10-10 23:21] LABS: #Basophils 0.2 thou/uL (0.0-0.2); #Eosinphils 0.6 thou/uL (0.0-0.7); #Lymphocytes 4.6 thou/uL (1.20-3.40); #Monocytes 0.4 thou/uL (0.11-0.59); #Neutrophils 5.4 thou/uL (1.40-6.50); %Basophils 1.5 % (0.0-1.0); %Eosinophils 5.6 % (0.0-10.0); %Lymphocytes 41.5 % (21.0-51.0); %Monocytes 3.1 % (0.0-10.0); %Neutrophils 48.3 % (42.0-75.0); Hemoglobin 15.3 g/dL (12.0-16.0); Mean Corpuscular HGB CONC 33.2 g/dL (32.0-36.0); Mean Corpuscular Hemoglobin 27.1 pg (27.0-31.0); Mean Corpuscular Volume 81.6 fL (78.0-98.0); Mean Platelet Volume 8.7 fL (7.4-10.4); Platelet Count 250 thou/uL (130-400); Red Blood Cell (RBC) Count 5.65 mill/uL (4.20-5.40); White Blood Cell (WBC) Count 11.2 thou/uL (4.8-10.8)
[2020-10-10 23:36] LABS: ALT (SGPT) 24 U/L (8-55); AST (SGOT) 15 U/L (5-34); Albumin 4.1 g/dL (3.5-5.0); Alkaline Phosphatase 92 U/L (40-110); Anion Gap 16 mmol/L (10-20); BUN (Urea Nitrogen) 8 mg/dL (7.0-18.7); Bilirubin, Total 0.4 mg/dL (0.2-1.2); Calc. Creatinine Clearance 0 mL/min (70-130); Carbon Dioxide 22 mmol/L (22-29); Chloride 105 mmol/L (98-107); Globulin 3.5 g/dL (2.4-3.5); Glucose 188 mg/dL (70-105); Potassium 3.7 mmol/L (3.5-5.1); Protein, Total 7.6 g/dL (6.0-8.3); Sodium 139 mmol/L (136-145)
== END 2020-10-11 01:27 | disposition home or self-care (01) ==
LOC: ERS 22:30
DX: R07.9 Chest pain, unspecified (principal); J45.909 Unspecified asthma, uncomplicated; F17.210 Nicotine dependence, cigarettes, uncomplicated; I25.2 Old myocardial infarction; Z79.899 Other long term (current) drug therapy
CPT/HCPCS: 36415; 71045; 80053; 84484; 85025; 93005

== ENCOUNTER 2020-10-25 08:41 | Outpatient (CLI) | payer OTHER | END 2020-10-25 08:42 | disposition home or self-care (01) | LOC: BICRAD 08:41 | PROVIDERS: ATTEND Nurse Practitioner Family | DX: M25.572 Pain in left ankle and joints of left foot (principal) ==

== ENCOUNTER 2020-11-30 16:59 | Emergency (ER) | payer SELFPAY | END 2020-11-30 19:27 | disposition home or self-care (01) | LOC: ERS 16:59 | DX: G89.29 Other chronic pain (principal); M25.562 Pain in left knee; J45.909 Unspecified asthma, uncomplicated; D64.9 Anemia, unspecified; F17.210 Nicotine dependence, cigarettes, uncomplicated; I25.2 Old myocardial infarction | CPT/HCPCS: 99283 ==

== ENCOUNTER 2020-12-01 13:06 | Emergency (ER) | payer SELFPAY ==
[2020-12-01] MEDS ORDERED: Ketorolac Tromethamine 30 MG/ML VIAL ONE (13:52)
== END 2020-12-01 14:51 | disposition home or self-care (01) ==
LOC: ERS 13:06
DX: M25.562 Pain in left knee (principal); I25.2 Old myocardial infarction; F17.210 Nicotine dependence, cigarettes, uncomplicated; Z79.899 Other long term (current) drug therapy
CPT/HCPCS: 96372; J1885

== ENCOUNTER 2021-04-26 18:45 | Emergency (ER) | payer SELFPAY ==
[2021-04-26 19:28] LABS: #Basophils 0.2 thou/uL (0.0-0.2); #Eosinphils 0.8 thou/uL (0.0-0.7); #Lymphocytes 5.4 thou/uL (1.20-3.40); #Neutrophils 8.8 thou/uL (1.40-6.50); %Basophils 1.1 % (0.0-1.0); %Eosinophils 4.9 % (0.0-10.0); %Lymphocytes 33.5 % (21.0-51.0); %Monocytes 6.1 % (0.0-10.0); %Neutrophils 54.5 % (42.0-75.0); Hemoglobin 15.8 g/dL (12.0-16.0); Mean Corpuscular HGB CONC 33.5 g/dL (32.0-36.0); Mean Corpuscular Hemoglobin 26.6 pg (27.0-31.0); Mean Corpuscular Volume 79.5 fL (78.0-98.0); Mean Platelet Volume 9.2 fL (7.4-10.4); Platelet Count 296 thou/uL (130-400); RBC Distribution Width 12.9 % (11.5-14.5); Red Blood Cell (RBC) Count 5.94 mill/uL (4.20-5.40); White Blood Cell (WBC) Count 16.1 thou/uL (4.8-10.8)
[2021-04-26 19:52] LABS: ALT (SGPT) 20 U/L (8-55); AST (SGOT) 14 U/L (5-34); Albumin 4.2 g/dL (3.5-5.0); Alkaline Phosphatase 101 U/L (40-110); Anion Gap 14 mmol/L (10-20); BUN (Urea Nitrogen) 7 mg/dL (7.0-18.7); Bilirubin, Total 0.2 mg/dL (0.2-1.2); Calc. Creatinine Clearance 0 mL/min (70-130); Calcium 9.5 mg/dL (7.8-10.44); Carbon Dioxide 24 mmol/L (22-29); Chloride 103 mmol/L (98-107); Globulin 3.1 g/dL (2.4-3.5); Glucose 92 mg/dL (70-105); Potassium 3.9 mmol/L (3.5-5.1); Protein, Total 7.3 g/dL (6.0-8.3); Sodium 137 mmol/L (136-145)
[2021-04-26] MEDS ORDERED: Acetaminophen/Codeine 30-300mg Tablet ONE (20:31)
[2021-04-26] MEDS ORDERED: Ketorolac Tromethamine 30 MG/ML VIAL ONE (20:31)
== END 2021-04-26 21:30 | disposition home or self-care (01) ==
LOC: ERS 18:45
DX: J45.909 Unspecified asthma, uncomplicated (principal); G43.909 Migraine, unspecified, not intractable, without status migrainosus; D64.9 Anemia, unspecified; F17.210 Nicotine dependence, cigarettes, uncomplicated
CPT/HCPCS: 36415; 71045; 80053; 84484; 85025; 93005; 96372; J1885

== ENCOUNTER 2021-06-02 10:27 | Emergency (ER) | payer SELFPAY ==
[2021-06-02] MEDS ORDERED: Iopamidol-370 76% 500 ML 1 ML ONE (10:42)
[2021-06-02] MEDS ORDERED: Metoclopramide HCl 10 MG/2 ML VIAL ONE (11:35)
[2021-06-02] MEDS ORDERED: diphenhydrAMINE 50 MG/ML VIAL ONE (11:35)
[2021-06-02 12:00] LABS: #Basophils 0.1 thou/uL (0.0-0.2); #Eosinphils 0.4 thou/uL (0.0-0.7); #Lymphocytes 2.7 thou/uL (1.20-3.40); #Monocytes 0.4 thou/uL (0.11-0.59); #Neutrophils 3.7 thou/uL (1.40-6.50); %Basophils 0.9 % (0.0-1.0); %Eosinophils 5.5 % (0.0-10.0); %Lymphocytes 36.9 % (21.0-51.0); %Monocytes 4.8 % (0.0-10.0); Hemoglobin 16.4 g/dL (12.0-16.0); Mean Corpuscular HGB CONC 32.8 g/dL (32.0-36.0); Mean Corpuscular Hemoglobin 26.7 pg (27.0-31.0); Mean Corpuscular Volume 81.3 fL (78.0-98.0); Mean Platelet Volume 9.2 fL (7.4-10.4); Platelet Count 293 thou/uL (130-400); RBC Distribution Width 13.1 % (11.5-14.5); Red Blood Cell (RBC) Count 6.14 mill/uL (4.20-5.40); White Blood Cell (WBC) Count 7.2 thou/uL (4.8-10.8)
[2021-06-02 12:33] LABS: BHCG - Serum Negative (NEGATIVE); Pregs Control Background? CLEAR/WHITE (CLR/WHITE); Pregs Control Bar Appear? YES (CONTROL BAR)
[2021-06-02 12:38] LABS: ALT (SGPT) 21 U/L (8-55); AST (SGOT) 22 U/L (5-34); Albumin 4.2 g/dL (3.5-5.0); Alkaline Phosphatase 79 U/L (40-110); Anion Gap 11 mmol/L (10-20); BUN (Urea Nitrogen) 6 mg/dL (7.0-18.7); Bilirubin, Total 0.5 mg/dL (0.2-1.2); Calc. Creatinine Clearance 0 mL/min (70-130); Calcium 9.3 mg/dL (7.8-10.44); Carbon Dioxide 24 mmol/L (22-29); Chloride 104 mmol/L (98-107); Globulin 3.6 g/dL (2.4-3.5); Glucose 88 mg/dL (70-105); Potassium 4.2 mmol/L (3.5-5.1); Protein, Total 7.8 g/dL (6.0-8.3); Sodium 135 mmol/L (136-145)
[2021-06-02] MEDS ORDERED: Ketorolac Tromethamine 30 MG/ML VIAL ONE (14:09)
== END 2021-06-02 14:17 | disposition home or self-care (01) ==
LOC: ERS 10:27
DX: R51.9 Headache, unspecified (principal); J45.909 Unspecified asthma, uncomplicated; D64.9 Anemia, unspecified; I10 Essential (primary) hypertension; F17.210 Nicotine dependence, cigarettes, uncomplicated
CPT/HCPCS: 70496; 70498; 80053; 84703; 85025; 93005; 96365; 96375; J1200; J1885; J2765; Q9967

== ENCOUNTER 2021-09-01 17:17 | Emergency (ER) | payer SELFPAY ==
[2021-09-01] MEDS ORDERED: Ketorolac Tromethamine 30 MG/ML VIAL ONE (17:53)
== END 2021-09-01 18:27 | disposition home or self-care (01) ==
LOC: ERS 17:17
DX: J20.9 Acute bronchitis, unspecified (principal); J45.909 Unspecified asthma, uncomplicated; G43.909 Migraine, unspecified, not intractable, without status migrainosus; I10 Essential (primary) hypertension; I25.2 Old myocardial infarction; F17.210 Nicotine dependence, cigarettes, uncomplicated
CPT/HCPCS: 71045; 96372; J1885

== ENCOUNTER 2022-08-25 17:14 | Emergency (ER) | payer SELFPAY ==
[2022-08-25] MEDS ORDERED: Ibuprofen 800 MG TAB ONE (18:10)
== END 2022-08-25 19:01 | disposition home or self-care (01) ==
LOC: ERS 17:14
DX: S63.501A Unspecified sprain of right wrist, initial encounter (principal); I10 Essential (primary) hypertension; F17.210 Nicotine dependence, cigarettes, uncomplicated; X50.0XXA Overexertion from strenuous movement or load, initial encounter